=== PATIENT | female | born 1990 | race Caucasian/White ===

== ENCOUNTER 2017-01-09 01:02 | Emergency (ER) | payer MEDICAID ==
[~2017-01-09] VITALS: Ht 162.6 cm; Wt 62.1 kg
[~2017-01-09 01:02] MED LIST: ACETAMINOPHEN-1 EAC1 ORAL; IBUPROFEN600 MG ORAL; KEFLEX500 M1 PO; KEFLEX500 MG ORAL; MACROBID100 MG ORAL; NKM; NORCO 5-325 TA1 EACH ORAL; PHENERGAN SUPP25 MG RECTAL; TRAMADOL HCL50 MG ORAL; XULANE PATCH1 EACH TD; ZOFRAN4 MG ORAL
[2017-01-09 01:20] VITALS: BP 119/85
[2017-01-09] MEDS ORDERED: Dicyclomine HCl 10mg/5ml oral soln ORAL ONE (01:45)
[2017-01-09] MEDS ORDERED: ZOFRAN4 M3 ORAL (02:17)
[2017-01-09 02:25] LABS: APPEARANCE,URINE CLEAR; KETONES,URINE 1+ (NEGATIVE); LEUKOCYTE ESTERASE ,URINE 1+ (NEGATIVE); NITRITE,URINE NEGATIVE (NEGATIVE); PH,URINE 7 (4.5-8.0); PROTEIN,URINE 1+ (NEGATIVE); UROBILINOGEN,URINE 1 MG/DL (0.0-1.0)
[2017-01-09 02:29] LABS: BACTERIA,URINE FEW /HPF; RBC,URINE 0-2 /HPF (0 - 2); SQUAMOUS EPITHELIAL CELL,UR FEW /LPF (NONE/OCC); WBC,URINE 0-2 /HPF (0 - 2)
[2017-01-09 02:31] VITALS: BP 119/85
--- NOTE | 2017-01-09 20:35 | Emergency Room Report ---
History of Present Illness General Chief Complaint: Abdominal Pain Source: Patient Present Illness HPI The patient is a 26-year-old female presented after increased abdominal pain as well as nausea and vomiting. Patient gradual onset of symptoms. The patient had been having intermittent abdominal cramping. Patient had increased diarrhea as well. The patient had menses approximately 2 weeks prior to arrival she denied any fever. She denies severe pain. The patient had some sick contacts with similar symptoms. She denied any increased pain with ambulation. Allergies: Coded Allergies: PENICILLINS (Verified Allergy, Severe, vomiting, 01/09/17) Uncoded Allergies: seafood (Allergy, Severe, 06/20/15) Patient History Past Medical History: see triage record Last Menstrual Period: 2 weeks ago : 2 Para: 2 Reviewed Nursing Documentation: PMH: Agreed, PSxH: Agreed Nursing Documentation-PMH Past Medical History: No History, Except For Review of Systems All Other Systems: negative except mentioned in HPI Physical Exam Vital Signs Date Time Temp Pulse Resp B/P Pulse Ox O2 Delivery O2 Flow Rate FiO2 01/09/17 01:15 97.7 86 16 119/85 99 Room Air Sp02 EP Interpretation: reviewed, normal General Appearance: normal inspection, well appearing, no apparent distress, alert, GCS 15 Head: atraumatic ENT: normal ENT inspection, hearing grossly normal, normal voice Neck: normal inspection, full range of motion, supple, no bony tend Respiratory: normal inspection, lungs clear, normal breath sounds, no respiratory distress, no retraction, no wheezing Cardiovascular #1: regular rate, rhythm, no edema Gastrointestinal: normal inspection, normal bowel sounds, non tender, soft, no guarding, no hernia Genitourinary: no CVA tenderness Musculoskeletal: normal inspection, back normal, normal range of motion Neurologic: normal inspection, alert, oriented x3, responsive, cardiovascular radiologic technologist III-XII nml as tested, speech normal Psychiatric: normal inspection, judgement/insight normal, mood/affect normal Skin: normal inspection, normal color, no rash Medical Decision Making Diagnostic Impression: Primary Impression: Abdominal pain Additional Impression: Gastroenteritis ER Course Patient presented for abdominal pain. Differential diagnoses included ischemic bowel, appendicitis, perforated viscus, abdominal aortic aneurysm, inferior myocardial infarction, viral gastroenteritis Patient's benign exam and does not appear to require any further imaging or laboratory testing at this time. Patient was given Zofran as well as Bentyl with improvement in her abdominal pain. The patient urinalysis did not appear to show evidence of infection. test was negative. The patient is advised to follow up with primary care doctor in 1-2 days. Patient is advised to return if any worsening condition or if any changes in status that are concerning. Labs Test 01/09/17 01:22 Urine Color Pale yellow Urine Appearance Clear Urine pH 7 (4.5-8.0) Urine Specific [place] 1.010 (1.005-1.035) Urine Protein 1+ (NEGATIVE) Urine Glucose (UA) Negative (NEGATIVE) Urine Ketones 1+ (NEGATIVE) Urine Occult Blood Negative (NEGATIVE) Urine Nitrite Negative (NEGATIVE) Urine Bilirubin Negative (NEGATIVE) Urine Urobilinogen 1 MG/DL (0.0-1.0) Urine Leukocyte Esterase 1+ (NEGATIVE) Urine RBC 0-2 /HPF (0 - 2) Urine WBC 0-2 /HPF (0 - 2) Urine Squamous Epithelial Cells Few /LPF (NONE/OCC) Urine Bacteria Few /HPF (NONE) Urine HCG, Qualitative Negative Last Vital Signs Date Time Temp Pulse Resp B/P Pulse Ox O2 Delivery O2 Flow Rate FiO2 01/09/17 02:31 97.7 87 16 119/85 99 Room Air Status: improved Disposition: HOME, SELF-CARE Condition: Stable Scripts Ondansetron* (ZOFRAN*) 4 Mg Tablet 4 MG ORAL Q6H Y for Nausea & Vomiting, #30 TAB Prov: Mo Palma 01/09/17 Referrals: [facility]ERR[facility] (PCP) Patient Instructions: Abdominal Pain, Adult Mo Palma January 09, 2017 20:35
== END 2017-01-09 02:31 | disposition home or self-care (01) ==
LOC: EMR 01:20
DX: K52.9 Noninfective gastroenteritis and colitis, unspecified (principal); Z88.0 Allergy status to penicillin; Z91.013 Allergy to seafood
CPT/HCPCS: 81003; 81025; 99283

== ENCOUNTER 2019-02-22 17:31 | Emergency (ER) | payer MEDICAID ==
[~2019-02-22] VITALS: Ht 162.6 cm; Wt 77.1 kg
[~2019-02-22 17:31] MED LIST changes: +ZOFRAN4 M3 ORAL
--- NOTE | 2019-02-22 17:43 | NUR ---
ED Nurse Note: PT WALKED IN TO ER TODAY FROM HOME. AOX4. PT C/O BURNING SENSATION WHILE URINATING AND INCREASE IN URINARY FREQUENCY X 3 DAYS AGO. PT ALSO C/O ODOROUS URINE X 3 DAYS AGO. PT STATES SHE ALSO HAD AN EPISODE OF BLEEDING X THIS AM. PT STATES SHE CHANGED 2 PANTY LINERS. PT DENIES VAGINAL SWELLING, REDNESS, ITCHING, OR ODOR. LMP X 2 WEEKS AGO.
[2019-02-22 17:45] VITALS: BP 134/88
[2019-02-22 18:09] LABS: APPEARANCE,URINE CLEAR; BILIRUBIN, URINE NEGATIVE (NEGATIVE); COLOR,URINE PALE YELLOW; GLUCOSE, URINE (UA) NEGATIVE (NEGATIVE); KETONES,URINE NEGATIVE (NEGATIVE); LEUKOCYTE ESTERASE ,URINE 2+ (NEGATIVE); NITRITE,URINE NEGATIVE (NEGATIVE); PH,URINE 6 (4.5-8.0); PROTEIN,URINE NEGATIVE (NEGATIVE); UROBILINOGEN,URINE NORMAL MG/DL (0.0-1.0)
--- NOTE | 2019-02-22 18:29 | Emergency Room Report ---
History of Present Illness General Chief Complaint: Female Urogenital Problems Source: Patient Present Illness HPI 28-year-old female with no significant past medical history is here today for 2 days of painful urination and frequency with mild hematuria. Patient is complaining of cramping in suprapubic area however denies flank pain, fever and chills, nausea vomiting. Denies vaginal discharge, pruritus . Denies chest pain, shortness of breath, and other associated symptoms patient is rating the pain 3 out of 10 without radiation patient taken ibuprofen with minimal relief. LMP was 2 weeks ago regular Allergies: Coded Allergies: PENICILLINS (Verified Allergy, Severe, vomiting, 01/09/17) Uncoded Allergies: seafood (Allergy, Severe, 06/20/15) Patient History Past Medical History: see triage record Past Surgical History: unable to obtain Pertinent Family History: none Last Menstrual Period: 02/06/19 Now: No Reviewed Nursing Documentation: PMH: Agreed; PSxH: Agreed Nursing Documentation-PMH Past Medical History: No Stated History Review of Systems All Other Systems: negative except mentioned in HPI Physical Exam Vital Signs Date Time Temp Pulse Resp B/P (MAP) Pulse Ox O2 Delivery O2 Flow Rate FiO2 02/22/19 17:33 97.3 87 17 140/95 (110) 99 Room Air Sp02 EP Interpretation: reviewed, normal General Appearance: normal inspection, well appearing, no apparent distress Head: normocephalic, atraumatic Eyes: bilateral eye normal inspection, bilateral eye PERRL ENT: normal ENT inspection, hearing grossly normal, normal pharynx Neck: normal inspection, full range of motion, supple, thyroid normal, no carotid bruits Respiratory: normal inspection, chest non-tender, lungs clear, normal breath sounds, no wheezing Cardiovascular #1: normal inspection, no edema, no gallop, no murmur, normal capillary refill Gastrointestinal: normal inspection, non tender, soft Rectal: deferred Genitourinary: no CVA tenderness Musculoskeletal: normal inspection, back normal Neurologic: normal inspection, alert, oriented x3, responsive, program counselor III-XII nml as tested Psychiatric: normal inspection, judgement/insight normal, memory normal Skin: normal inspection, normal color, no rash, warm/dry Lymphatic: normal inspection, no adenopathy Medical Decision Making PA Attestation All my diagnosis and treatment plans were reviewed ad discussed with my supervising physician Dr. Palma Diagnostic Impression: Primary Impression: UTI (urinary tract infection) ER Course 28-year-old female with no significant past medical history is here today for 2 days of painful urination and frequency with mild hematuria. Patient is complaining of cramping in suprapubic area however denies flank pain, fever and chills, nausea vomiting. Denies vaginal discharge, pruritus . Denies chest pain, shortness of breath, and other associated symptoms patient is rating the pain 3 out of 10 without radiation patient taken ibuprofen with minimal relief. LMP was 2 weeks ago regular Ddx considered but are not limited to: UTI, pylonephritis, urinary incontinence , prolapsed bladder Vital signs: are WNL, pt. is afebrile H&PE are most consistent with: UTI uncomplicated ORDERS: UA, urine preg, Macrobid, Pyridium ED INTERVENTIONS: None required at this time. DISCHARGE: At this time pt. is stable for d/c to home. Will provide printed patient care instructions, and any necessary prescriptions. Care plan and follow up instructions have been discussed with the patient prior to discharge. Although with a primary care provider take medication as directed drink a lot of fluids Urine positive for white blood cells and leukocytes Last Vital Signs Date Time Temp Pulse Resp B/P (MAP) Pulse Ox O2 Delivery O2 Flow Rate FiO2 02/22/19 17:45 97.6 84 18 134/88 100 Room Air Disposition: HOME, SELF-CARE Condition: Stable Scripts Phenazopyridine Hcl* (PYRIDIUM*) 200 Mg Tablet 200 MG ORAL THREE TIMES A DAY for 2 Days, #6 TAB 0 Refills Prov: Rory Eric 02/22/19 Nitrofurantoin Monohyd/M-Cryst* (MACROBID 100 MG*) 100 Mg Capsule 100 MG ORAL EVERY 12 HOURS for 7 Days, #14 CAP Prov: Rory Eric 02/22/19 Patient Instructions: Urinary Tract Infection Additional Instructions: Medication as directed. Follow-up with the primary care provider Rory Eric Feb 22, 2019 18:29
[2019-02-22] MEDS ORDERED: NITROFURANTOIN100 M2 ORAL (18:34)
[2019-02-22] MEDS ORDERED: PHENAZOPYRIDIN200 MG ORAL (18:34)
[2019-02-22 18:38] VITALS: BP 132/84
--- NOTE | 2019-02-22 18:38 | NUR ---
ED Nurse Note: PT SITTING PEACEFULLY IN CHAIR IN NAD. AOX4. PRESCRIPTIONS AND DISCHARGE PAPERWORK EXPLAINED TO PT. PT VERBALIZES UNDERSTANDING AND ALL QUESTIONS ANSWERED. PRESCRIPTIONS AND DISCHARGE PAPERWORK GIVEN TO PT AND ID WRISTBAND REMOVED. PT WALKED OUT OF ER WITH STEADY GAIT AND ALL BELONGINGS.
== END 2019-02-22 18:39 | disposition home or self-care (01) ==
LOC: EMR 18:34
DX: N39.0 Urinary tract infection, site not specified (principal); R31.9 Hematuria, unspecified; Z88.0 Allergy status to penicillin; Z91.013 Allergy to seafood
CPT/HCPCS: 81001; 81025; 99283